=== PATIENT | male | born 1995 | race Two or more races ===

== ENCOUNTER 2017-11-14 16:00 | Emergency (ER) | payer MEDICAID ==
[~2017-11-14] VITALS: Ht 172.7 cm; Wt 59.0 kg
[2017-11-14 16:35] VITALS: BP 126/79
[2017-11-14] MEDS ORDERED: ZyPREXA Zydis 10mg tab ORAL ONE (17:00)
[2017-11-14 17:38] LABS: BASOPHILS % (AUTO) 1.2 % (0.0-2.0); EOSINOPHILS % (AUTO) 7.8 % (0.0-3.0); HEMATOCRIT 38.7 % (42.0-52.0); HEMOGLOBIN 13.3 G/DL (14.2-18.0); LYMPHOCYTES % (AUTO) 18.8 % (20.0-45.0); MEAN CORPUSCULAR VOLUME 82 FL (80-99); MONOCYTES % (AUTO) 11.4 % (1.0-10.0); NEUTROPHILS % (AUTO) 60.8 % (45.0-75.0); PLATELET COUNT 255 K/UL (150-450); RED BLOOD COUNT 4.71 M/UL (4.70-6.10); RED CELL DISTRIBUTION WIDTH 12.3 % (11.6-14.8); WHITE BLOOD COUNT 7.6 K/UL (4.8-10.8)
[2017-11-14 17:40] LABS: ANION GAP 9 mmol/L (5-15); BLOOD UREA NITROGEN 6 mg/dL (7-18); CALCIUM 8.9 MG/DL (8.5-10.1); CARBON DIOXIDE 26 MMOL/L (21-32); CHLORIDE 105 MMOL/L (98-107); CREATININE 0.7 MG/DL (0.55-1.30); POTASSIUM 3.4 MMOL/L (3.5-5.1); SODIUM 140 MMOL/L (136-145)
[2017-11-14 17:45] LABS: ALANINE AMINOTRANSFERASE 38 U/L (12-78); ALBUMIN 3.4 G/DL (3.4-5.0); ALBUMIN/GLOBULIN RATIO 0.9 (1.0-2.7); ALKALINE PHOSPHATASE 89 U/L (46-116); ASPARTATE AMINO TRANSFERASE 24 U/L (15-37); BILIRUBIN,TOTAL 0.3 MG/DL (0.2-1.0)
[2017-11-14 19:05] VITALS: BP 104/59
--- NOTE | 2017-11-14 21:21 | Emergency Room Report ---
History of Present Illness General Chief Complaint: Behavioral Complaint Source: Patient (Yousif Hart MD) Present Illness HPI 22-year-old male presents ED for evaluation. Patient states that he is feeling depressed and has thoughts of hurting himself. Was seen at another ER last week and was supposed to receive an antipsychotic injection but did not get it because he is homeless. Patient denies drug use. Denies any chest pain or shortness of breath. No other aggravating relieving factors. Denies any other associated symptoms (Yousif Hart MD) Allergies: Coded Allergies: No Known Allergies (Unverified , 11/14/17) Patient History Past Medical History: psych hx Past Surgical History: none Pertinent Family History: none Social History: Reports: drug use; Denies: smoking, alcohol use Immunizations: UTD Reviewed Nursing Documentation: PMH: Agreed; PSxH: Agreed (Yousif Hart MD) Nursing Documentation-PMH History Of Psychiatric Problem: Yes - bi-polar, schizo (Yousif Hart MD) Review of Systems All Other Systems: negative except mentioned in HPI (Yousif Hart MD) Physical Exam Vital Signs Date Time Temp Pulse Resp B/P (MAP) Pulse Ox O2 Delivery O2 Flow Rate FiO2 11/14/17 15:47 98.0 80 16 130/88 99 Room Air 98.1 Sp02 EP Interpretation: reviewed, normal General Appearance: no apparent distress, GCS 15, non-toxic, lethargic Head: normocephalic, atraumatic Eyes: bilateral eye normal inspection, bilateral eye PERRL ENT: hearing grossly normal, normal pharynx, no angioedema, normal voice Neck: full range of motion, supple/symm/no masses Respiratory: chest non-tender, lungs clear, normal breath sounds, speaking full sentences Cardiovascular #1: regular rate, rhythm, no edema Cardiovascular #2: 2+ carotid (R), 2+ carotid (L), 2+ radial (R), 2+ radial (L) , 2+ dorsalis pedis (R), 2+ dorsalis pedis (L) Gastrointestinal: normal bowel sounds, non tender, soft, non-distended, no guarding, no rebound Rectal: deferred Genitourinary: normal inspection, no CVA tenderness Musculoskeletal: back normal, gait/station normal, normal range of motion, non- tender Neurologic: other - lethargic Psychiatric: mood/affect normal, anxious Reflexes: 3+ bicep (R), 3+ bicep (L), 3+ tricep (R), 3+ tricep (L), 3+ knee (R) , 3+ knee (L) Skin: normal color, no rash, warm/dry, well hydrated Lymphatic: no adenopathy (Yousif Hart MD) Medical Decision Making Diagnostic Impression: Primary Impression: Behavioral disorder Additional Impression: Psychosis 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 Differential diagnoses include: Major depressive disorder, unspecified psychosis , EtOH abuse, drug abuse Clinical course Patient placed on stretcher. On one to one observation. After initial history , so exam reveals male in no acute distress. Patient is lethargic, sleepy. States he is hearing voices. Denies any suicidal ideation at this time. patient has discharge paperwork from [facility] from last week. Discharged on Invega injection which patient cannot get because he has no insurance Labs-electrolytes normal, aspirin/Tylenol levels normal, EtOH level normal, U. tox +THC Given zyprexa here discussed with Dr Lane; agrees that patient should be reassessed after Zyprexa. If patient wants to be placed he can be placed voluntarily. Otherwise she will see the patient in the morning. I agree with her assessment Patient is medically cleared otherwise Labs Test 11/14/17 17:09 11/14/17 17:58 White Blood Count 7.6 K/UL (4.8-10.8) Red Blood Count 4.71 M/UL (4.70-6.10) Hemoglobin 13.3 G/DL (14.2-18.0) Hematocrit 38.7 % (42.0-52.0) Mean Corpuscular Volume 82 FL (80-99) Mean Corpuscular Hemoglobin 28.1 PG (27.0-31.0) Mean Corpuscular Hemoglobin Concent 34.3 G/DL (32.0-36.0) Red Cell Distribution Width 12.3 % (11.6-14.8) Platelet Count 255 K/UL (150-450) Mean Platelet Volume 7.0 FL (6.5-10.1) Neutrophils (%) (Auto) 60.8 % (45.0-75.0) Lymphocytes (%) (Auto) 18.8 % (20.0-45.0) Monocytes (%) (Auto) 11.4 % (1.0-10.0) Eosinophils (%) (Auto) 7.8 % (0.0-3.0) Basophils (%) (Auto) 1.2 % (0.0-2.0) Sodium Level 140 MMOL/L (136-145) Potassium Level 3.4 MMOL/L (3.5-5.1) Chloride Level 105 MMOL/L (98-107) Carbon Dioxide Level 26 MMOL/L (21-32) Anion Gap 9 mmol/L (5-15) Blood Urea Nitrogen 6 mg/dL (7-18) Creatinine 0.7 MG/DL (0.55-1.30) Estimat Glomerular Filtration Rate > 60 mL/min (>60) Glucose Level 141 MG/DL (74-106) Calcium Level 8.9 MG/DL (8.5-10.1) Total Bilirubin 0.3 MG/DL (0.2-1.0) Aspartate Amino Transf (AST/SGOT) 24 U/L (15-37) Alanine Aminotransferase (ALT/SGPT) 38 U/L (12-78) Alkaline Phosphatase 89 U/L (46-116) Total Protein 7.4 G/DL (6.4-8.2) Albumin 3.4 G/DL (3.4-5.0) Globulin 4.0 g/dL Albumin/Globulin Ratio 0.9 (1.0-2.7) Salicylates Level 1.8 ug/mL (2.8-20) Acetaminophen Level < 2 MCG/ML (10-30) Serum Alcohol < 3 mg/dL Urine Opiates Screen Negative (NEGATIVE) Urine Barbiturates Screen Negative (NEGATIVE) Phencyclidine (PCP) Screen Negative (NEGATIVE) Urine Amphetamines Screen Negative (NEGATIVE) Urine Benzodiazepines Screen Negative (NEGATIVE) Urine Cocaine Screen Negative (NEGATIVE) Urine Marijuana (THC) Screen Positive (NEGATIVE) (Yousif Hart MD) ER Course Patient signout to me. He presents with psychosis and not on any antipsychotic medication. He received Zyprexa here. He slept for a long period of time. He woke up to eat and was able talk coherently. Said he felt better. Said he doesn't want to go to a psychiatric facility. He's not suicidal or homicidal. We'll put him on antipsychotic medication. He is willing to sleep. To the morning before he leaves. This patient is a chronic risk of self injury due to poor impulse control, limited coping skills, and judgment intermittently impaired by intoxication. I believe that the available clinical evidence to suggest that these characteristics derived primarily from personality disorder and are likely very stable over time. Hospitalization would likely attenuate risk of self-harm only during senior care period, without lasting risk reduction. Serious self-harm , while possible, would likely be inadvertent, and because of impulsivity, and foreseeable. For these reasons, I do not believe hospitalization would provide meaningful reduction in risk of self-harm. (ISA HARRELL M.D.) Last Vital Signs Date Time Temp Pulse Resp B/P (MAP) Pulse Ox O2 Delivery O2 Flow Rate FiO2 11/14/17 19:05 97.8 71 18 104/59 97 Room Air 97.8 (Yousif Hart MD) Status: improved (ISA HARRELL M.D.) Disposition: HOME, SELF-CARE Condition: Improved Scripts Olanzapine* (ZYPREXA*) 5 Mg Tablet 5 MG ORAL DAILY, #30 TAB Prov: ISA HARRELL M.D. 11/15/17 Referrals: NOT CHOSEN [facility]/,REFERRING (PCP) Patient Instructions: Self-Destructive Behavior Additional Instructions: Follow-up with mental health in 7 days. Return if symptom worsen. Yousif Hart MD November 14, 2017 21:21 ISA HARRELL M.D. November 15, 2017 03:22
[2017-11-14 21:30] VITALS: BP 105/63
[2017-11-15 00:05] VITALS: BP 96/53
[2017-11-15 02:17] VITALS: BP 105/67
[2017-11-15] MEDS ORDERED: ZYPREXA5 MG ORAL (03:22)
[2017-11-15 04:06] VITALS: BP 116/71
[2017-11-15 06:00] VITALS: BP 121/71
[2017-11-15 06:15] VITALS: BP 121/71
== END 2017-11-15 06:18 | disposition home or self-care (01) ==
LOC: EDBD 16:00 → EMR 17:33
DX: F91.9 Conduct disorder, unspecified (principal); F29 Unspecified psychosis not due to a substance or known physiological condition; F20.9 Schizophrenia, unspecified
CPT/HCPCS: 36415; 80053; 80307; 80329; 85025; 99283